=== PATIENT | male | born 1980 | race Two or more races ===

== ENCOUNTER 2017-02-12 21:50 | Emergency (ER) | payer OTHER ==
[2017-02-12 22:10] VITALS: BP 115/74; PULSE 77; RESP 15; TEMP 97.9; O2SAT 94
== END 2017-02-12 22:30 | disposition left against medical advice (07) ==
LOC: CED 21:50
DX: Z53.21 Procedure and treatment not carried out due to patient leaving prior to being seen by health care provider (principal)